=== PATIENT | male | born 1940 | race Caucasian/White ===

== ENCOUNTER 2018-12-04 10:43 | Emergency (ER) | payer MEDICARE ==
[~2018-12-04] VITALS: Ht 177.8 cm; Wt 70.0 kg
[2018-12-04] MEDS ORDERED: HYDRALAZINE25 MG PO (11:18)
[2018-12-04] MEDS ORDERED: METOPROL TAR25 MG PO (11:19)
[2018-12-04] MEDS ORDERED: PLAVIX75 MG PO (11:20)
[2018-12-04] MEDS ORDERED: TAMSULOSIN0.4 MG PO (11:21)
[2018-12-04] MEDS ORDERED: PRAVASTATIN40 MG PO (11:21)
[2018-12-04] MEDS ORDERED: CORDARONE/PACE100 MG PO (11:22)
[2018-12-04 11:23] LABS: HEMATOCRIT 27.5 % (39.0-50.0); HEMOGLOBIN 8.8 g/dl (14.0-18.0); IMMATURE GRANULOCYTES 1.1 % (0.0-5.0); MEAN CELL VOLUME 101.5 fL CALC (80.0-100.0); MEAN CORPUSCULAR HGB 32.5 pG CALC (26.0-32.0); NEUT# 6.08 thou/uL (1.82-7.42); RED BLOOD COUNT 2.71 mill/uL (4.70-6.10); RED CELL DISTRI WIDTH 19.9 % (11.5-15.5)
[2018-12-04] MEDS ORDERED: LORAZEPAM0.5 MG PO (11:24)
[2018-12-04] MEDS ORDERED: CYCLOBENZAPR10 MG PO (11:25)
[2018-12-04] MEDS ORDERED: DOXYCYCL HYC100 MG PO (11:27)
[2018-12-04] MEDS ORDERED: HYDROCO/APAP1 TA9 PO (11:30)
[2018-12-04] MEDS ORDERED: TRAMADOL HCL50 MG PO (11:30)
[2018-12-04] MEDS ORDERED: ONDANSETRON4 MG PO (11:31)
[2018-12-04] MEDS ORDERED: VENTOLIN H108 MCG/AC IN (11:32)
[2018-12-04 12:17] VITALS: BP 163/80
[2018-12-04 12:26] LABS: ALBUMIN 2.9 g/dL (3.2-5.0); BILIRUBIN, TOTAL 1.1 mg/dL (0.0-1.4); POTASSIUM 4.9 mmol/l (3.5-5.1); TOTAL PROTEIN 5.1 g/dL (6.3-8.2)
[2018-12-04 12:28] LABS: CREATININE 5.4 mg/dL (0.7-1.3)
== END 2018-12-04 12:17 | disposition short-term general hospital (02) ==
LOC: ED 10:43
PROVIDERS: Emergency Medicine
PROC: 5A09357 Assistance with Respiratory Ventilation, Less than 24 Consecutive Hours, Continuous Positive Airway Pressure (ICD-10-PCS; principal; 2018-12-04)
DX: I13.2 Hypertensive heart and chronic kidney disease with heart failure and with stage 5 chronic kidney disease, or end stage renal disease (principal); I50.9 Heart failure, unspecified; N18.6 End stage renal disease; T46.5X6A Underdosing of other antihypertensive drugs, initial encounter; Z99.2 Dependence on renal dialysis; Z91.15 Patient's noncompliance with renal dialysis; Z99.81 Dependence on supplemental oxygen